=== PATIENT | female | born 1950 | race Caucasian/White ===

== ENCOUNTER 2023-03-13 14:42 | Outpatient (CLI) | payer MEDICARE, SELFPAY ==
[2023-03-13] MEDS: PERFLUTREN LIPID MICROSPHERES 2 ML VIAL IV (15:45)
--- NOTE | 2023-03-13 15:46 | W.PM.STED ---
Stress Test Note Date Date Seen: 03/13/23 Date of test: 03/13/23 Providers Primary care provider: Sirisha Martinez Stress test physician: Elly Guan Stress Test Note Stress test ordered: Stress Echo Indication for test: Hypertension, dyspnea on exertion. Stress test medicine: Definity Results discussion: Resting EKG: Sinus rhythm, 98 beats per minute. Some initial artifact. Resting blood pressure: 108/75 Stress test: Patient exercised on the treadmill following standard Reji protocol. Patient exercised to 4 minutes 52 seconds, stopping due to reaching heart rate but becoming significantly dyspneic. She had no chest pain. She achieved 6.8 Mets at this level of activity. She had a maximum heart rate of 171 beats per minute which was 136% of a calculated target heart rate of 125. She had a rate pressure product of 22,737. She did develop unifocal PVCs that were asymptomatic during recovery. She was quite significantly dyspneic but had excellent recovery once exercise stopped. Impression: Subjectively negative for chest pain but significant dyspnea on exertion noted, objectively negative EKG portion of this stress test. Follow up suggested: Patient had quick recovery of her dyspnea with a termination of exercise. She was discharged from the stress test in stable condition. Await echo images to couple this report for full formal diagnostic. Did ask patient and she does endorse a remote history of smoking. If this stress echo evaluation is negative on the echo reading, did discuss with her consideration of looking at pulmonary function testing of her lungs could be considered. Ultimately defer to her primary provider.
[2023-03-13 16:03] VITALS: BP 141/86; PULSE 101; RESP 18
== END 2023-03-13 14:43 | disposition home or self-care (01) ==
LOC: STRESS 14:44
PROVIDERS: PCP Physician Assistant Medical; Visit Provider Family Medicine
DX: I10 Essential (primary) hypertension (principal); I25.9 Chronic ischemic heart disease, unspecified; R06.02 Shortness of breath
CPT/HCPCS: 93016; 93325; 93351; Q9957

== ENCOUNTER 2023-06-06 13:06 | Outpatient (CLI) | payer MEDICARE, SELFPAY ==
--- NOTE | 2023-06-06 13:20 | CRLHL7_ITS ---
For Patients: As a result of the Century Cures Act, medical imaging exams and procedure reports are released immediately into your electronic medical record. You may view this report before your referring provider. If you have questions, please contact your health care provider. BILATERAL SCREENING MAMMOGRAM WITH COMPUTER-AIDED DETECTION AND TOMOSYNTHESIS TECHNIQUE: CC and MLO views were obtained. These mammographic images have been obtained using full-field digital technique. These mammographic images were interpreted with the benefit of computer-aided detection. Breast Tomosynthesis was used in this interpretation. COMPARISON FILM: 02/10/22, 01/29/20. FINDINGS: There are scattered areas of fibroglandular density IMPRESSION: There is no radiographic evidence for malignancy. ASSESSMENT: BI-RADS Category 1: Negative RECOMMENDATION: Routine screening mammogram in 1 year. A lay language report of this examination will be provided to the patient. Sandra Frances M.D. Diagnostic/Breast Radiologist [email or web address] GABBY/Dictated by: Sandra Frances MD @ 06/07/2023 10:58:00 AM (Electronically Signed)
== END 2023-06-06 13:07 | disposition home or self-care (01) ==
PROVIDERS: PCP Physician Assistant Medical; Visit Provider Physician Assistant Medical
DX: Z12.31 Encounter for screening mammogram for malignant neoplasm of breast (principal)
CPT/HCPCS: 77063; 77067

== ENCOUNTER 2024-05-08 09:22 | Outpatient (CLI) | payer MEDICARE, SELFPAY | END 2024-05-08 09:23 | disposition home or self-care (01) | LOC: NFLDREF 05-11 10:29 | PROVIDERS: PCP Physician Assistant Medical; Referring Provider Physician Assistant Medical; Visit Provider Physician Assistant Medical | DX: I10 Essential (primary) hypertension (principal); I25.10 Atherosclerotic heart disease of native coronary artery without angina pectoris; M81.0 Age-related osteoporosis without current pathological fracture; K21.9 Gastro-esophageal reflux disease without esophagitis; Z12.39 Encounter for other screening for malignant neoplasm of breast; Z13.6 Encounter for screening for cardiovascular disorders; Z11.59 Encounter for screening for other viral diseases; Z11.3 Encounter for screening for infections with a predominantly sexual mode of transmission | CPT/HCPCS: 80053; 80061; 84443; 86703; 86803 ==

== ENCOUNTER 2024-06-05 13:46 | Outpatient (CLI) | payer MEDICARE, SELFPAY ==
--- NOTE | 2024-06-05 14:00 | CRLHL7_ITS ---
For Patients: As a result of the Century Cures Act, medical imaging exams and procedure reports are released immediately into your electronic medical record. You may view this report before your referring provider. If you have questions, please contact your health care provider. DXA BONE MINERAL DENSITY STUDY Reason for exam: Osteoporosis. Current height (in): 63.5. Weight (lb): 185. Menopause age: 37. Ethnicity: White. 1. Have you had a previous hip or vertebral fracture? No. 2. Have you had any fractures during your adult life which did not result from significant trauma (e.g., auto accident)? No. 3. Did either of your parents have a hip fracture? No. 4. Do you smoke? No. 5. Have you ever taken Glucocorticoids? No. 6. Do you have rheumatoid arthritis? No. 7. Do you have secondary osteoporosis? No. 8. Do you drink 3 or more alcoholic drinks per day? No. 9. Are you being treated for osteoporosis? No. 10. Have you ever taken any of the following medications: Actonel, Evista, Fosamax, Miacalcin, Reclast, Boniva, Forteo, HRT (i.e., estrogen/hormone therapy), Protelos, Prolia, Vitamin D, Calcium, other ??? please specify. ANSWER: Yes, Fosamax (i.e., alendronate), Vitamin D, and calcium. 11. Do you have any of the following medical conditions: Anorexia or bulimia, asthma or emphysema, end stage renal disease, hyperparathyroidism, any seizure disorders, cancer, inflammatory bowel diseases, hysterectomy, other ??? please specify. ANSWER: Yes, hysterectomy. 12. What was your maximum height (inches)? 64. 13. Do you perform weight bearing exercise regularly? Yes. 14. Do you regularly consume dairy products? Yes. 15. Do you drink caffeinated beverages? Yes. 16. At what age did your period start? 11. 17. Are you premenopausal? No. 18. How many full-term pregnancies have you had? 1. 19. Have you ever missed your period for more than 6 months in a row (not including or menopauseNo. TECHNIQUE: Bone mineral density study was performed using the [employer]. FINDINGS: The results of the study expressed as bone mineral density (BMD) are as follows: Lumbar spine L1 to L3: BMD: 0.813 g/cm2. T-score: -1.9. Z-score: 0.5 Neck Left: BMD: 0.531 g/cm2. T-score: -2.9. Z-score: -0.8 Right: BMD: 0.532 g/cm2. T-score: -2.9. Z-score: -0.8 Total Left: BMD: 0.759 g/cm2. T-score: -1.5. Z-score: 0.3 Right: BMD: 0.831 g/cm2. T-score: -0.9. Z-score: 0.8 IMPRESSION: Osteoporosis. *Comparison exams done prior to 11/2019 were performed on different unit, [employer]. Rudolph Garcia M.D. Diagnostic Radiologist [email or web address] YOSSI/petrona russ/Dictated by: Rudolph Garcia MD @ 06/06/2024 8:51:00 AM (Electronically Signed)
== END 2024-06-05 13:47 | disposition home or self-care (01) ==
LOC: RAD 13:48
PROVIDERS: PCP Physician Assistant Medical; Visit Provider Physician Assistant Medical
DX: M81.0 Age-related osteoporosis without current pathological fracture (principal)
CPT/HCPCS: 77080

== ENCOUNTER 2024-06-17 13:19 | Outpatient (CLI) | payer MEDICARE, SELFPAY ==
--- NOTE | 2024-06-17 13:20 | CRLHL7_ITS ---
For Patients: As a result of the Century Cures Act, medical imaging exams and procedure reports are released immediately into your electronic medical record. You may view this report before your referring provider. If you have questions, please contact your health care provider. BILATERAL SCREENING MAMMOGRAM WITH COMPUTER-AIDED DETECTION AND TOMOSYNTHESIS TECHNIQUE: CC and MLO views were obtained. These mammographic images have been obtained using full-field digital technique. These mammographic images were interpreted with the benefit of computer-aided detection. Breast tomosynthesis was used in this interpretation. COMPARISON FILM: 06/06/23, 02/10/22, 01/29/20. FINDINGS: There are scattered areas of fibroglandular density. IMPRESSION: There is no radiographic evidence for malignancy. ASSESSMENT: BI-RADS Category 2: Benign RECOMMENDATION: Routine screening mammogram in 1 year. A lay language report of this examination will be provided to the patient. RUDOLPH CONTRERAS M.D. Diagnostic Radiologist [email or web address] [email or web address] Transcribed: 06/19/2024, 2:[address]/Dictated by: Rudolph Contreras MD @ 06/19/2024 8:27:00 AM (Electronically Signed)
== END 2024-06-17 13:20 | disposition home or self-care (01) ==
LOC: MAMMO 13:19
PROVIDERS: PCP Physician Assistant Medical; Visit Provider Physician Assistant Medical
DX: Z12.31 Encounter for screening mammogram for malignant neoplasm of breast (principal)
CPT/HCPCS: 77063; 77067